=== PATIENT | female | born 1970 | race Hispanic/Latino ===

== ENCOUNTER → 2017-06-27 | Day surgery (SDC) | payer OTHER ==
[~2017-06-27] MED LIST: DEXAMETHASONE SOD PHOS INJ 4 MG/ML VIAL ONE; FENTANYL CITRATE/PF 100MCG/2 ML INJ ONE; GLYCOPYRROLATE INJ 1MG/ 5 ML SYR ONE; LEVOTHYROXINE112 MCG PO; LIDOCAINE 1% W/EPINEPHRINE 20 ML VIAL ONE; LIDOCAINE HCL 1% 30ML-PF VIAL ONE; LIDOCAINE HCL 2% LOCAL INJ 5 ML SDV VIAL INJ ONE; MIDAZOLAM HCL 2 MG/2 ML VIAL ONE; NEOSTIGMINE 5 MG/5ML SYR ONE; ONDANSETRON HCL INJ 2 MG/ML VIAL ONE; OXYMETAZOLINE HCL 0.05% NAS 1 SPRAY BTL ONE; PROPOFOL IV EMULSION 10 MG/ML 20 ML VIAL ONE; ROCURONIUM BROMIDE 10 MG/ML 5ML VIAL ONE; SEVOFLURANE INHAL SOLN 250 ML PEN BTL ONE; SUCCINYLCHOLINE 200 MG/10 ML SYR ONE
--- NOTE | 2017-06-27 08:58 | Operative Report ---
DATE OF PROCEDURE: June 27, 2017 PREOPERATIVE DIAGNOSES 1. Hoarseness. 2. Left true vocal cord mass. POSTOPERATIVE DIAGNOSES 1. Hoarseness. 2. Left true vocal cord mass. PROCEDURES 1. Direct operative laryngoscopy. 2. Suspension microlaryngoscopy with use of operating microscope. 3. Excision of left true vocal cord mass. SIGNIFICANT FINDINGS: Left anterior true vocal cord mass (sent for permanent section analysis). ACCOUNTING DIRECTOR: None. ANESTHESIA: General endotracheal tube anesthesia with 6.5 ET tube. SPECIMEN REMOVED: Left anterior true vocal cord mass. ESTIMATED BLOOD LOSS: Less than 1 mL. COMPLICATIONS: None. INDICATIONS: Patient is a 47-year-old female with 6 to 7 years' history of hoarseness, globus sensation, throat clearing, and postnasal drip. There has been history of vocal abuse in the past though she denies vocal abuse currently. She is a nonsmoker. She has had no previous throat or neck surgery. Flexible fiberoptic nasal laryngoscopy revealed a pedunculated round soft tissue mass involving the left anterior true vocal cord. She is scheduled for direct laryngoscopy with suspension microlaryngoscopy with the use of operating microscope and excision of true vocal cord mass under general anesthesia for the treatment of hoarseness due to a left vocal cord mass. Risks and complications of the procedures were thoroughly discussed with patient and include infection; bleeding; scarring; failure to improve; need for additional operations; damage to teeth, tongue and lips; damage to the pharynx resulting in perforation; worsening voice; chronic pain; need for blood transfusions; damage to surrounding nerves; blood vessels and muscles; possibility of malignancy and need for further treatment. PROCEDURE: Patient was taken to the operating room and placed supine on the operating table where general anesthesia was achieved through a 6.5 ET tube. Eyes were taped, shoulder roll was placed. Table was turned 90 degrees with the head towards the surgeon. A teeth guard was then placed over the upper teeth. Aubrey laryngoscope was then used to visualize the larynx and this was done without difficulty. The laryngoscope was then placed into suspension. Thorough examination revealed an essentially pedunculated soft tissue mass attached to the medial surface of the anterior portion of the left true vocal cord. This was grasped with a cup forceps and was excised with Bellucci scissors at its base removing the entirety of the mass. Hemostasis was obtained with cottonoid pledgets soaked with Afrin. The mass was sent for permanent section analysis. After hemostasis was obtained, further inspection revealed no other irregularities or masses. The Aubrey laryngoscope was then taken out of suspension and was then removed without difficulty revealing no trauma to the teeth, tongue, and lips. Patient was awakened in the operating room, extubated, and taken to the recovery room in good condition. Job#: [id number]
== END | disposition home or self-care (01) ==
LOC: OR 06:07
PROVIDERS: ATTEND Otolaryngology
DX: J38.1 Polyp of vocal cord and larynx (principal); E03.9 Hypothyroidism, unspecified; Z87.891 Personal history of nicotine dependence
CPT/HCPCS: 31541; 81025; 88305; J1100; J2001; J2250; J2405